=== PATIENT | female | born 1960 | race Caucasian/White ===

== ENCOUNTER → 2017-02-24 | Outpatient (CLI) | payer OTHER ==
--- NOTE | 2017-02-24 21:18 | WWHP ---
DATE OF SERVICE: 02/24/17 CHIEF COMPLAINT: The patient is here for her routine gynecological exam and mammogram. HISTORY OF PRESENT ILLNESS: This is a 57 -year-old G0, with an LMP of 2009. The patient is without gynecological complaints. Denies any postmenopausal bleeding. She weaned off Clonidine which she was taking for hot flashes. She states she has infrequent hot flashes and has been doing well without Clonidine. PAST MEDICAL HISTORY: Hypothyroidism, and depression. Medications: 1. Citalopram HBR 20 mg daily. 2. Synthroid 75 mcg daily. 3. Gabapentin one daily. ALLERGIES: No known drug allergies. PAST SURGICAL HISTORY: Colonoscopy in 2010. 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 SOCIAL HISTORY: She denies tobacco, alcohol and drug use. She is single and is not seeing anyone at this time and has not been sexually for years . 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 REVIEW OF SYSTEMS: She has gained about 9 pounds over the last year. She denies respiratory, cardiac or GI problems. PHYSICAL EXAM: Blood pressure 131/85. Height 5 feet 3 inches, weight 236 pounds. Temperature 97.7. Pulse 67. This is a well developed, well nourished white female who is alert and oriented times three in no acute distress. HEENT : is within normal limits. Neck is supple without mass or thyromegaly. Chest and lungs clear to auscultation. Heart is regular rate and rhythm. Breasts without mass or discharge. Axillary exam is negative for adenopathy. Back negative for CVA tenderness. Abdomen is soft and nontender without palpable masses. Pelvic exam, external genitalia appears normal with mild atrophy. Cervix and vagina reveals mild atrophy without lesions. There is no evidence of prolapse. Uterus is mid position, nongravid size and nontender. No palpable adnexal masses or tenderness. Rectovaginal exam is negative for mass or tenderness. Negative for occult blood. Extremities nontender. IMPRESSION: A 57 year old menopausal female with normal gynecological exam. PLAN: 1. Pap smear was deferred since she had a normal co-testing including negative PAP smear with negative HPV on 10/25/2014. 2. Self breast examination was discussed. 3. Mammogram will be done today. 4. Osteoporosis prevention was discussed. 5. She will return in one year. 6. We will plan on doing bone density testing next year. SAM
--- NOTE | 2017-02-26 09:53 | MM ---
Reason for exam: screening (asymptomatic). Last mammogram was performed 1 year and 2 months ago. History: Patient is postmenopausal and is nulliparous. Physical Findings: A clinical breast exam by your physician is recommended on an annual basis and results should be correlated with mammographic findings. MG Screening Mammo w CAD Bilateral CC and MLO view(s) were taken. Prior study comparison: December 26, 2015, bilateral MG screening mammo w CAD. There are scattered fibroglandular densities. No significant changes when compared with prior studies. ASSESSMENT: Negative, BI-RAD 1 RECOMMENDATION: Routine screening mammogram of both breasts in 1 year.
== END | disposition home or self-care (01) ==
LOC: WWCWWP 07:46
PROVIDERS: ATTEND Obstetrics & Gynecology
DX: Z12.31 Encounter for screening mammogram for malignant neoplasm of breast (principal)

== ENCOUNTER → 2018-04-21 | Outpatient (CLI) | payer OTHER ==
[2018-04-21 08:58] VITALS: BP 136/90; PULSE 74; TEMP 98.1; BMI 42.5
--- NOTE | 2018-04-21 09:45 | P.HPOB ---
History of Present Illness H&P Date: 04/21/18 Chief Complaint: The patient is here for her routine gynecologic exam and mammogram. This is a 58-year-old G0 with an LMP of 2009. The patient is without gynecologic complaints and denies any postmenopausal bleeding. She denies any significant hot flashes. She had a previous co-test Pap smear on 10/25/2014 that was negative and negative for high-risk HPV. Review of Systems The patient has gained 4 pounds over the last year. She denies respiratory, cardiac, or G.I. problems. 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 History of Any Multi-Drug Resistant Organisms: None Reported Past Surgical History: No Surgical Hx Reported Additional Past Surgical History / Comment(s): Colonoscopy 2010 Past Psychological History: Depression Smoking Status: Never smoker Past Alcohol Use History: None Reported Past Drug Use History: None Reported Additional History: The patient is single and has not been sexually active for several years. She lives with her elderly mother and is her caregiver. She works at the [employer]. - Past Family History Mother Family Medical History: Diabetes Mellitus Medications and Allergies Home Medications Medication Instructions Recorded Confirmed Type Levothyroxine Sodium [Synthroid] 75 mcg PO DAILY 05/18/15 05/18/15 History Citalopram Hydrobromide PO DAILY 04/21/18 History [Citalopram HBr] Allergies Allergy/AdvReac Type Severity Reaction Status Date / Time No Known Allergies Allergy Verified 04/21/18 08:54 Exam Vital Signs Temp Pulse BP 04/21/18 08:54 98.1 F 74 136/90 Intake and Output 04/20/18 04/21/18 04/21/18 22:59 06:59 14:59 Other: Weight 108.862 kg Height 5'3", BMI 42.5. This is a well-developed well-nourished heavyset white female who is alert and oriented times 3 in no acute distress. HEENT: Within normal limits. NECK: Supple without mass or thyromegaly. CHEST AND LUNGS: Clear to auscultation. HEART: Regular rate and rhythm. BREASTS: Are without mass or discharge. AXILLARY EXAM: Negative for adenopathy. BACK: Negative for CVA tenderness. ABDOMEN: Soft, mildly obese, nontender, without palpable masses. PELVIC EXAM: Normal external genitalia with minimal atrophy. Cervix and vagina appear normal with minimal atrophy. There is no unusual discharge. There is no evidence of prolapse. The uterus is midposition, nongravid size and nontender. There are no palpable adnexal masses or tenderness. RECTAL EXAM: rectovaginal exam is negative for mass or tenderness and is negative for occult blood. EXTREMITIES: Nontender. IMPRESSION: 1. 58-year-old menopausal female with normal gynecologic exam. 2. Previous negative negative Co-test pap smear 2014 PLAN: 1. Pap smear was deferred since she had a negative co-test Pap smear in 2014. We will plan on rescreening next year. 2. Self breast awareness was discussed with the patient. 3. Screening mammogram will be done today. 4. Osteoporosis prevention was discussed. Baseline bone density screening will be done today. 5. STD prevention was discussed. 6. She will return in one year.
--- NOTE | 2018-04-21 14:02 | BD ---
EXAMINATION TYPE: Axial Bone Density DATE OF EXAM: 04/21/2018 COMPARISON: NONE CLINICAL HISTORY: Height: 62 Weight: 237.0 FRAX RISK QUESTIONS: Alcohol (3 or more units per day): no Family History (Parent hip fracture): yes/ mother Glucocorticoids (More than 3mos): no (Ex: prednisone, prednisolone, methylprednisolone, dexamethasone, and hydrocortisone). History of Fracture in Adulthood: no Secondary Osteoporosis: 1. Type 1 Diabetes: no 2. Hyperthyroidism: no 3. Menopause before 45: no 4. Malnutrition: no 5. Chronic liver disease: no Rheumatoid Arthritis: no Current Tobacco Use: no RISK FACTORS HISTORY OF: Family History of Osteoporosis: no Active: yes Diet low in dairy products/other sources of calcium: yes Postmenopausal woman: age 49 Lost more than 2 inches in height since high school: no MEDICATIONS: celapram Thyroid Medications: synthroid How Lon years Additional History: EXAM MEASUREMENTS: Bone mineral densitometry was performed using the [employer] System. Bone mineral density as measured about the Lumbar spine is: ----- L1-L4(G/cm2): 1.069 T Score Values are as follows: ----- L2: -1.5 ----- L3: -0.9 ----- L4: -0.4 ----- L1-L4: -0.9 Bone mineral density : baseline Bone mineral density about the R hip (g/cm2): 0.793 Bone mineral density about the L hip (g/cm2): 0.850 T Score values are as follows: -----R Neck: -1.8 -----L Neck: -1.4 -----R Total: -1.1 -----L Total: -0.8 Bone mineral density : baseline IMPRESSION: Osteopenia proximal right femora NOTE: T-SCORE=SD OF THE YOUNG ADULT MEAN.
--- NOTE | 2018-04-23 12:37 | MM ---
Reason for exam: screening (asymptomatic). Last mammogram was performed 1 year and 2 months ago. History: Patient is postmenopausal and is nulliparous. Physical Findings: A clinical breast exam by your physician is recommended on an annual basis and results should be correlated with mammographic findings. MG 3D Screening Mammo W/Cad Bilateral CC and MLO view(s) were taken. Prior study comparison: February 24, 2017, bilateral MG screening mammo w CAD. December 26, 2015, bilateral MG screening mammo w CAD. The breast tissue is heterogeneously dense. This may lower the sensitivity of mammography. Finding: Thre is equal, spiculated architectural distortion in the outer quadrant, middle position of the left breast. New finding since February 24, 2017 and December 26, 2015. ASSESSMENT: Incomplete: need additional imaging evaluation, BI-RAD 0 RECOMMENDATION: Special view mammogram of the left breast. If lesion persists on supplemental views, image directed ultrasound is recommended. [facility] will attempt to contact patient to return for supplemental views and ultrasound if indicated.
--- NOTE | 2018-04-27 17:54 | P.PN ---
Progress Note - Text Progress Note Date: 04/27/18 OUTPATIENT FOLLOW-UP NOTE TEST(S)/RESULTS: test results from 04/21/2018 include bone density test showing osteopenia and mammogram requiring a left breast workup. METHOD OF NOTIFICATION: she was notified by phone. PATIENT COMMENTS: patient has an appointment for the left breast workup on 04/30. DIAGNOSIS: osteopenia and incomplete left breast imaging. DISCUSSION: we discussed the importance of adequate calcium, vitamin D and regular exercise. No medication for the osteopenia will be prescribed at this time. PLAN: Will plan a repeating the bone density test in 2 to 3 years. {Workup will be done on 04/30/2018.
== END | disposition home or self-care (01) ==
LOC: WWCWWP 08:27
PROVIDERS: ATTEND Obstetrics & Gynecology
DX: Z12.31 Encounter for screening mammogram for malignant neoplasm of breast (principal); M85.851 Other specified disorders of bone density and structure, right thigh; Z78.0 Asymptomatic menopausal state
CPT/HCPCS: 77063; 77067; 77080

== ENCOUNTER → 2018-04-30 | Outpatient (CLI) | payer OTHER ==
--- NOTE | 2018-04-30 14:29 | MM ---
Reason for exam: additional evaluation requested from abnormal screening. Last mammogram was performed less than 1 month ago. History: Patient is postmenopausal and is nulliparous. Physical Findings: Nurse Summary: 2cm nodule in the left breast at 11 o'clock (nurse kp). MG 3D Work Up W/Cad LT Spot compression CC, spot compression MLO, and LM view(s) were taken of the left breast. Prior study comparison: April 21, 2018, bilateral MG 3d screening mammo w/cad. February 24, 2017, bilateral MG screening mammo w CAD. The breast tissue is heterogeneously dense. This may lower the sensitivity of mammography. These results were verbally communicated with the patient and result sheet given to the patient on 04/30/18. ASSESSMENT: Probably benign, BI-RAD 3 RECOMMENDATION: Follow-up diagnostic mammogram of the left breast in 6 months.
== END | disposition home or self-care (01) ==
LOC: RADMAMWWP 10:45
PROVIDERS: ATTEND Obstetrics & Gynecology
DX: R92.8 Other abnormal and inconclusive findings on diagnostic imaging of breast (principal)
CPT/HCPCS: 77065; G0279; 77061

== ENCOUNTER → 2018-10-27 | Outpatient (CLI) | payer OTHER ==
--- NOTE | 2018-10-27 11:18 | MM ---
Reason for exam: follow-up at short interval from prior study. Last mammogram was performed 6 months ago. History: Patient is postmenopausal and is nulliparous. Physical Findings: Nurse did not find any significant physical abnormalities on exam. MG 3D Diag Mammo W/Cad LT CC and MLO view(s) were taken of the left breast. Prior study comparison: April 30, 2018, left breast MG 3d work up w/cad LT. April 21, 2018, bilateral MG 3d screening mammo w/cad. The breast tissue is heterogeneously dense. This may lower the sensitivity of mammography. These results were verbally communicated with the patient and result sheet given to the patient on 10/27/18. ASSESSMENT: Benign, BI-RAD 2 RECOMMENDATION: Return to routine screening mammogram schedule for both breasts. Back on schedule.
== END ==
LOC: RADMAMWWP 09:20
PROVIDERS: ATTEND Family Medicine
DX: R92.8 Other abnormal and inconclusive findings on diagnostic imaging of breast (principal)
CPT/HCPCS: 77065; G0279; 77061

== ENCOUNTER → 2019-05-04 | Outpatient (CLI) | payer OTHER ==
[2019-05-04 08:04] VITALS: BP 144/87; PULSE 63; RESP 16; TEMP 98.3; BMI 42.3
--- NOTE | 2019-05-04 08:42 | P.HPOB ---
History of Present Illness H&P Date: 05/04/19 Chief Complaint: The patient is here for her routine gynecologic exam and ma mmogram. This is a 59-year-old G0 with an LMP of 2009. The patient is without gynecologic complaints and denies any postmenopausal bleeding. Review of Systems The patient's weight has been stable over the last year. She denies respiratory, cardiac, or G.I. problems. Musculoskeletal: She has been having left shoulder problems and has undergone therapy for rotator cuff problems. Past Medical History Past Medical History: Thyroid Disorder Additional Past Medical History / Comment(s): 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 History of Any Multi-Drug Resistant Organisms: None Reported Past Surgical History: No Surgical Hx Reported Additional Past Surgical History / Comment(s): Colonoscopy 2010 Past Psychological History: Depression Smoking Status: Never smoker Past Alcohol Use History: None Reported Past Drug Use History: None Reported Additional History: The patient is single and is not seeing anybody at this time. She has not been sexually active for several years. 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 She works at the [employer]. - Past Family History Mother Family Medical History: Diabetes Mellitus Medications and Allergies Home Medications Medication Instructions Recorded Confirmed Type Levothyroxine Sodium [Synthroid] 75 mcg PO DAILY 05/18/15 05/04/19 History Citalopram Hydrobromide 20 mg PO DAILY 04/21/18 05/04/19 History [Citalopram HBr] Allergies Allergy/AdvReac Type Severity Reaction Status Date / Time No Known Allergies Allergy Verified 05/04/19 07:46 Exam Vital Signs Temp Pulse Resp BP Pulse Ox 05/04/19 07:50 98.3 F 63 16 144/87 97 Intake and Output 05/03/19 05/04/19 05/04/19 22:59 06:59 14:59 Other: Weight 108.409 kg Height 5 feet 3 inches, weight 239 pounds, BMI 42.3. This is a well-developed well-nourished heavyset white female who is alert and oriented times 3 in no acute distress. HEENT: Within normal limits. NECK: Supple without mass or thyromegaly. CHEST AND LUNGS: Clear to auscultation. HEART: Regular rate and rhythm. BREASTS: Are without mass or discharge. AXILLARY EXAM: Negative for adenopathy. BACK: Negative for CVA tenderness. ABDOMEN: Soft, nontender, without palpable masses. PELVIC EXAM: Normal external genitalia with mild atrophy. Cervix and vagina appear normal mild atrophy. There is no unusual discharge. There is no evidence of prolapse. The uterus is midposition, nongravid size and nontender. There are no palpable adnexal masses or tenderness. Bimanual examination is somewhat limited secondary to her size. RECTAL EXAM: Rectovaginal exam is negative for mass or tenderness and is negative for occult blood. EXTREMITIES: Nontender. IMPRESSION: 1. 59-year-old menopausal female with normal gynecologic exam. 2. Osteopenia. PLAN: 1. Pap smear was performed. 2. Self breast awareness was discussed with the patient. 3. Screening mammogram was done today. 4. Osteoporosis prevention was discussed. I have stressed the importance of adequate calcium, vitamin D and regular exercise. Recommended amounts of calcium and vitamin D were also discussed. Bone density testing will be due in 1-2 years. 5. She was advised to return in one year for her annual well woman exam.
--- NOTE | 2019-05-05 11:05 | MM ---
Reason for exam: screening (asymptomatic). Last mammogram was performed 6 months ago. History: Patient is postmenopausal and is nulliparous. Physical Findings: A clinical breast exam by your physician is recommended on an annual basis and results should be correlated with mammographic findings. MG 3D Screening Mammo W/Cad Bilateral CC and MLO view(s) were taken. Prior study comparison: October 27, 2018, left breast MG 3d diag mammo w/cad LT. April 30, 2018, left breast MG 3d work up w/cad LT. The breast tissue is heterogeneously dense. This may lower the sensitivity of mammography. Finding: There is a new typically benign circumscribed round mass in the anterior position of the right breast, fat density consistent with hamartomas. 19mm oval, circumscribed fat density lesion on CC and MLO . Interval oval circumscribed lesion outer anterior breast 2-2.5cm from the nipple. ASSESSMENT: Incomplete: need additional imaging evaluation, BI-RAD 0 RECOMMENDATION: Ultrasound of the right breast. [facility] will attempt to contact patient to return for ultrasound.
== END | disposition home or self-care (01) ==
LOC: WWCWWP 07:20
PROVIDERS: ATTEND Obstetrics & Gynecology
DX: Z12.31 Encounter for screening mammogram for malignant neoplasm of breast (principal)
CPT/HCPCS: 77063; 77067

== ENCOUNTER 2019-05-13 11:15 | Day surgery (SDC) | payer OTHER ==
[2019-05-11 09:30] VITALS: BMI 40.7
[~2019-05-13 11:15] MED LIST: LACTATED RINGERS 1,000 ML IV SCH; LIDOCAINE 1% 20 ML VIAL (10MG/ML) FOR IV START INTRADERMA PRN
[2019-05-13 11:32] VITALS: RESP 16; TEMP 97.6
[2019-05-13] MEDS ORDERED: PROPOFOL 10 MG/ML 20 ML VIAL IV ONE (11:52)
--- NOTE | 2019-05-13 11:57 | P.GSHP ---
History of Present Illness H&P Date: 05/13/19 Chief Complaint: Colon cancer screening Patient here today for colonoscopy. Last colonoscopy 10 years ago. That was normal. No bowel complaints. No family history of colon cancer. Past Medical History Past Medical History: Thyroid Disorder Additional Past Medical History / Comment(s): 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 History of Any Multi-Drug Resistant Organisms: None Reported Past Surgical History: No Surgical Hx Reported Additional Past Surgical History / Comment(s): Colonoscopy. Past Anesthesia/Blood Transfusion Reactions: No Reported Reaction Past Psychological History: Depression Smoking Status: Never smoker Past Alcohol Use History: None Reported Past Drug Use History: None Reported - Past Family History Mother Family Medical History: Diabetes Mellitus Medications and Allergies Home Medications Medication Instructions Recorded Confirmed Type Levothyroxine Sodium [Synthroid] 75 mcg PO DAILY 05/18/15 05/13/19 History Citalopram Hydrobromide 20 mg PO DAILY 04/21/18 05/13/19 History [Citalopram HBr] Allergies Allergy/AdvReac Type Severity Reaction Status Date / Time No Known Allergies Allergy Verified 05/13/19 11:42 Surgical - Exam Vital Signs Temp Pulse Resp BP Pulse Ox 97.6 F 97 16 129/75 97 05/13/19 11:31 05/13/19 11:31 05/13/19 11:31 05/13/19 11:31 05/13/19 11:31 Physical exam: General: Well-developed, well-nourished HEENT: Normocephalic, sclerae nonicteric Abdomen: Nontender, nondistended Extremities: No edema Neuro: Alert and oriented Assessment and Plan (1) Colon cancer screening Narrative/Plan: Will proceed with colonoscopy at this time. Current Visit: Yes Status: Acute Code(s): Z12.11 - ENCOUNTER FOR SCREENING FOR MALIGNANT NEOPLASM OF COLON SNOMED Code(s): 320650858
--- NOTE | 2019-05-13 12:11 | P.PCN ---
Date of Procedure: 05/13/19 Procedure(s) Performed: PREOPERATIVE DIAGNOSIS: Colon cancer screening POSTOPERATIVE DIAGNOSIS: Normal exam PROCEDURE: Colonoscopy ANESTHESIA: MAC SURGEON: Zheng Mesa M.D. SPECIMENS: None ENDOSCOPIC PROCEDURE: The patient was placed on the endoscopy table in the left decubitus position. The Olympus colonoscope was inserted into the anus and passed under direct visualization to the base of the cecum. The appendiceal orifice was visualized. From that point the scope was slowly withdrawn inspecti ng all surfaces carefully. There were no neoplastic inflammatory or polypoid lesions throughout the cecum, ascending, transverse, descending, sigmoid and rectum. There was no visible diverticulosis noted. Digital rectal examination was normal. The patient was taken to the recovery room in stable condition per anesthesia guidelines. RECOMMENDATIONS: Increase fiber. Follow-up colonoscopy 10 years.
[2019-05-13 12:53] VITALS: BP 127/86; PULSE 63
== END 2019-05-13 13:10 | disposition home or self-care (01) ==
LOC: ORWHC2ENDO 11:15
PROVIDERS: ATTEND Surgery
DX: Z12.11 Encounter for screening for malignant neoplasm of colon (principal); E03.9 Hypothyroidism, unspecified; Z83.3 Family history of diabetes mellitus; Z79.890 Hormone replacement therapy; Z79.899 Other long term (current) drug therapy; F32.9 Major depressive disorder, single episode, unspecified
CPT/HCPCS: J2704; G0121; 45378

== ENCOUNTER → 2019-05-20 | Outpatient (CLI) | payer OTHER ==
--- NOTE | 2019-05-20 10:09 | USB ---
Reason for exam: additional evaluation requested from abnormal screening. History: Patient is postmenopausal and is nulliparous. Physical Findings: Nurse Summary: palpable, 1cm, 10 o'clock (nurse kp). US Breast Workup Limited RT Right limited breast ultrasound including focal area of concern, retroareolar and axilla demonstrates a 1.6 x 1.2 x 2.1cm mixed lesion at 9 o'clock. These results were verbally communicated with the patient and result sheet given to the patient on 05/20/19. ASSESSMENT: Suspicious, BI-RAD 4 RECOMMENDATION: Ultrasound core biopsy of the right breast. (FNA +/- Core) Called Dr. Penny's office with mammographic findings and has scheduled an appointment for the patient for 06/16/19 at 3:[address] Bonilla. Biopsy scheduled for 06/17/19 at 11:30. PRELIMINARY REPORT CALLED AND FAXED TO DR. BONILLA ON 05/20/19.
== END ==
LOC: RADUSWWP 07:00
PROVIDERS: ATTEND Obstetrics & Gynecology
DX: R92.8 Other abnormal and inconclusive findings on diagnostic imaging of breast (principal)

== ENCOUNTER → 2019-06-16 | Outpatient (CLI) | payer OTHER ==
[2019-06-16 14:34] VITALS: BP 134/88; PULSE 70; RESP 18; TEMP 98.7; BMI 40.7
--- NOTE | 2019-06-16 15:10 | P.GSHP ---
History of Present Illness H&P Date: 06/16/19 Chief Complaint: abnormal ultrasound of the left breast Esme is a 59 -year-old white female seen in consultation for DR. Fajardo who on a routine mammogram was noted to have in the right breast fatty density consistent with a hamartoma. This was on [id number]. Ultrasound was recommended. An ultrasound was performed which revealed a 1.6 x 1.2 x 2.1 cm mixed lesion at 9:00. And it was recommended that she undergo an ultrasound core biopsy versus an FNA of the area. The nurse noted a 1 cm palpable lesion at 10:00. The patient does not note any pain or discrete masses in her breasts. She states they are lumpy as she gets older. She denies any nipple discharge or skin changes. No recent infection or trauma to the breast. She has never had a breast biopsy. The patient fell about a year ago and bruised her lower breast, but she did not note any lumps in her breast. The patient has pain in the 9 oclock position of the right breast. This does not spread any place. She is uncertain of the duration of the pain. The pain is only there when she touches it. She drinks tea occasionally. She does not smoke and is not exposed to second hand smoke. She eats dark chocolate about twice a week. Family History: no cancer Hormonal History; menarche: 13 Go menopause: 49 BCP: 30 years hormones: none Surgical history: Negative Medical history: Negative Social history: Smoke: Negative Alcohol: Negative Drugs: Negative - Constitutional Constitutional: Denies chills, Denies fever - EENT Eyes: denies blurred vision, denies pain Ears: deny: decreased hearing, tinnitus Ears, nose, mouth and throat: Denies headache, Denies sore throat - Breasts Breasts: bilateral: as per HPI - Cardiovascular Cardiovascular: Denies chest pain, Denies shortness of breath - Respiratory Respiratory: Denies cough, Denies 7 - Gastrointestinal Gastrointestinal: Denies abdominal pain, Denies diarrhea, Denies nausea, Denies vomiting - Genitourinary (Female) Genitourinary: Denies dysuria, Denies hematuria - Menstruation Menstruation: Reports postmenopausal - Musculoskeletal Comment: arthritis distal fingers both hand - Integumentary Integumentary: Denies pruritus, Denies rash - Neurological Neurological: Denies numbness, Denies weakness - Psychiatric Psychiatric: Denies anxiety, Denies depression - Endocrine Endocrine: Denies fatigue, Denies weight change - Hematologic/Lymphatic Comment: none - Allergic/Immunologic Allergic/Immunologic: Reports as per HPI Past Medical History Past Medical History: Thyroid Disorder Additional Past Medical History / Comment(s): 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 History of Any Multi-Drug Resistant Organisms: None Reported Past Surgical History: No Surgical Hx Reported Additional Past Surgical History / Comment(s): Colonoscopy 2010 Past Anesthesia/Blood Transfusion Reactions: No Reported Reaction Past Psychological History: Depression Smoking Status: Never smoker Past Alcohol Use History: None Reported Past Drug Use History: None Reported - Past Family History Mother Family Medical History: Diabetes Mellitus Medications and Allergies Home Medications Medication Instructions Recorded Confirmed Type Levothyroxine Sodium [Synthroid] 75 mcg PO DAILY 05/18/15 06/16/19 History Citalopram Hydrobromide 20 mg PO DAILY 04/21/18 06/16/19 History [Citalopram HBr] Allergies Allergy/AdvReac Type Severity Reaction Status Date / Time No Known Allergies Allergy Verified 06/16/19 14:28 Surgical - Exam Vital Signs Temp Pulse Resp BP Pulse Ox 98.7 F 70 18 134/88 97 06/16/19 14:29 06/16/19 14:29 06/16/19 14:29 06/16/19 14:29 06/16/19 14:29 BMI 40.7 - General obese - Eyes normal ocular movement - ENT normal pinna, no hearing loss, no congestion - Neck no masses, trachea midline, no lymphadectomy - Respiratory normal expansion, normal respiratory effort, clear to percussion, clear to auscultation - Cardiovascular Heart Sounds: normal: S1, S2 - Abdomen Abdomen: soft, non tender, no guarding, no rigid, no rebound - Integumentary normal turgor - Neurologic normal coordination, no disoriented, no combative - Musculoskeletal normal gait, normal posture - Psychiatric oriented to time, oriented to person, oriented to place, speech is normal, memory intact breast exam: right breast: multi-positional exam increased nodularity 9 o'clock position slightly tender to palpation no other dominant masses or nodules of concern Right axilla: No adenopathy of concern Left breast: Multi-positional exam no dominant masses or nodules of concern Left axilla: No adenopathy of concern Results Mammogram results reviewed, ultrasound results reviewed Assessment and Plan Assessment: Impression: 1. Abnormal mammogram and ultrasound right breast 2. Lump right breast 3. Fibrocystic breast changes right breast 4. Mastodynia right breast 5. Family history negative for cancer 6. BMI 40.7 Plan: 1. Is on core biopsy lesion noted in right breast 2. Follow-up after ultrasound core biopsy 3. discussed fibrocystic breast changes and pain may be related to theophylline intake patient will modify this We have discussed the fibrocystic breast changes again may be related to theophylline. We've also discussed that adipose tissue forms estrogen and this can exacerbate fibrocystic breast pain. The patient is aware of this she is on a weight reduction plan at the present time. She is being scheduled for ultrasound-guided core biopsy of the right breast. Risk and benefits are discussed. The patient understands and wishes to proceed. CC: Scotty about 25 minutes spent
== END ==
LOC: WWCWWP 13:27
PROVIDERS: ATTEND Surgery
DX: Z53.9 Procedure and treatment not carried out, unspecified reason (principal)

== ENCOUNTER → 2019-06-17 | Day surgery (SDC) | payer OTHER ==
[2019-06-17 10:45] VITALS: RESP 18; TEMP 98.5; BMI 42.0
[2019-06-17 12:21] VITALS: BP 126/85; PULSE 59
--- NOTE | 2019-06-17 12:46 | USB ---
EXAMINATION TYPE: US breast aspiration single RT DATE OF EXAM: 06/17/2019 COMPARISON: NONE CLINICAL HISTORY: Complex cyst right breast 9:00 position TECHNIQUE: Ultrasound guided cyst aspiration. FINDINGS: The procedure of ultrasound guided cyst aspiration was explained to the patient. Benefits, alternatives, and risks were discussed. An informed consent was then obtained. The standard sterile technique was utilized. Local anesthesia was obtained with 1% lidocaine. An 18-gauge needle was introduced into the lesion in question and approximately 0.5 cc of white thick aspirate was obtained and sent to cytology for further evaluation. Microclip marker was deployed. The patient tolerated the The patient tolerated the procedure well without any immediate complication. The patient was kept in the radiology department for short stay after the procedure and then discharged home in stable condition Post biopsy mammogram shows the clip to appear in satisfactory position relative to the targeted area of concern on the preprocedure images. IMPRESSION: SUCCESSFUL, UNCOMPLICATED ULTRASOUND GUIDED CYST ASPIRATION RIGHT 9:00 POSITION WITH CYTOLOGY RESULTS PENDING. Pathology Results: Benign RIGHT BREAST, 9:00, ASPIRATE: Minimally cellular specimen consisting of very rare bland ductal epithelial cells and macrophages. Essentially non-diagnostic. Recommendation Follow up ultrasound of the right breast in 6 months. SAM
--- NOTE | 2019-06-20 09:19 | MM ---
Reason for exam: additional evaluation requested from abnormal screening. Last mammogram was performed 1 month ago. History: Patient is postmenopausal and is nulliparous. MG Diagnostic Mammo RT Wo CAD CC and LM view(s) were taken of the right breast. Prior study comparison: May 04, 2019, bilateral MG 3d screening mammo w/cad. October 27, 2018, left breast MG 3d diag mammo w/cad LT. ASSESSMENT: Post procedure mammogram for marker placement RECOMMENDATION: Ultrasound of the right breast in 6 months. PENDING PATHOLOGY RESULTS.
== END ==
LOC: RADUSWWP 10:24
PROVIDERS: ATTEND Surgery
DX: N60.01 Solitary cyst of right breast (principal); R92.8 Other abnormal and inconclusive findings on diagnostic imaging of breast; Z78.0 Asymptomatic menopausal state
CPT/HCPCS: 88173; 77065; 76942; 19000; A4648; J2001

== ENCOUNTER → 2019-07-07 | Outpatient (CLI) | payer OTHER ==
[2019-07-07 17:02] VITALS: BP 144/88; PULSE 73; RESP 18; TEMP 98.3
--- NOTE | 2019-07-07 17:28 | P.PN ---
Subjective Progress Note Date: 07/07/19 Principal diagnosis: fibrocystic breast changes Esme is a 59-year-old white female status post ultrasound-guided cyst aspiration of the right breast at 9:00. Aspirate revealed minimally cellular specimen consisting of very rare bland ductal epithelial cells and macrophages. The patient has no complaints following the procedure. Objective - Vital Signs Vital signs: Vital Signs Temp 98.3 F 07/07/19 16:52 Pulse 73 07/07/19 16:52 Resp 18 07/07/19 16:52 BP 144/88 07/07/19 16:52 Pulse Ox 98 07/07/19 16:52 Intake & Output 07/06/19 07/07/19 07/07/19 18:59 06:59 18:59 Weight 106.594 kg - Exam BMI 41.6 - Constitutional General appearance: Present: obese - Integumentary Integumentary Comment(s): left breast at the aspiration site mild ecchymosis No evidence of hematoma Assessment and Plan Assessment: impression: 1. Status post aspiration of lesion right breast This was benign fibrocystic changes Plan: Follow up ultrasound of the right breast in 6 months with physician exam at that time CC: Dr. Penny, Dr. Morejon Time with Patient: Less than 30
== END | disposition home or self-care (01) ==
LOC: WWCWWP 16:04
PROVIDERS: ATTEND Surgery
DX: Z53.9 Procedure and treatment not carried out, unspecified reason (principal)

== ENCOUNTER → 2019-12-20 | Outpatient (CLI) | payer OTHER ==
--- NOTE | 2019-12-20 09:02 | USB ---
Reason for exam: clinical finding. History: Patient is postmenopausal and is nulliparous. Benign US breast aspiration single RT of the right breast, June 17, 2019. Physical Findings: Nurse Summary: all soft, nodular, movable (nurse ts). US Breast RT Technologist: Anna Marie Manzanares Right complete breast ultrasound includes all four quadrants, the retroareolar region and axilla. Finding demonstrates a 1.1 x 1.1 x 0.6cm cystic cluster at 12 o'clock and a 0.4 x 0.4 x 0.5cm cystic lesion at 9 o'clock. These results were verbally communicated with the patient and result sheet given to the patient on 12/20/19. ASSESSMENT: Benign, BI-RAD 2 RECOMMENDATION: Return to routine screening mammogram schedule for both breasts. Back on schedule for April 2020.
== END | disposition home or self-care (01) ==
LOC: RADUSWWP 07:58
PROVIDERS: ATTEND Surgery
DX: R92.8 Other abnormal and inconclusive findings on diagnostic imaging of breast (principal)

== ENCOUNTER → 2019-12-22 | Outpatient (CLI) | payer OTHER ==
[2019-12-22 08:45] VITALS: BP 120/78; PULSE 75; RESP 18; TEMP 97.8
--- NOTE | 2019-12-22 09:26 | P.PN ---
Subjective Progress Note Date: 12/22/19 Principal diagnosis: fibrocystic breast/follow up ultrasound Esme is a 59 -year-old white female who was seen in consultation for DR. Fajardo on 06-16-19. On a routine mammogram of 05-04-19 she noted to have in the right breast fatty density consistent with a hamartoma. Ultrasound was recommended, and preformed on 05-20-19. It revealed a 1.6 x 1.2 x 2.1 cm mixed lesion at 9:00. And it was recommended that she undergo an ultrasound core biopsy versus an FNA of the area. She had ultrasound guided biopsy of the area on [id number]. This was a minimally cellular specimen consisting of the rare bland ductal epithelial cells and macrophages, essentially nondiagnostic The patient does not note any pain or discrete masses in her breasts. She states they are lumpy as she gets older. She denies any nipple discharge or skin changes. No recent infection or trauma to the breast. The patient fell in the past and bruised her lower right breast, but she did not note any lumps in her breast and has had complete resolution of any symptoms. She is not complaining of any pain in her breast. She drinks tea daily. She does not smoke and is not exposed to second hand smoke. She eats dark chocolate about twice a week. Repeat ultrasound was performed on December 192019. This revealed a 1.1 x 0.6 cm cystic cluster at 12:00 and a 0.4 x 0.5 cm cystic cluster at 9:00. This was felt to be benign BIRADS 2 routine screening in April was recommended. Family History: no cancer Hormonal History; menarche: 13 Go menopause: 49 BCP: 30 years hormones: none Surgical history: Negative Medical history: Negative Social history: Smoke: Negative Alcohol: Negative Drugs: Negative - Constitutional Constitutional: Denies chills, Denies fever - EENT Eyes: denies blurred vision, denies pain Ears: deny: decreased hearing, tinnitus Ears, nose, mouth and throat: Denies headache, Denies sore throat - Breasts Breasts: bilateral: as per HPI - Cardiovascular Cardiovascular: Denies chest pain, Denies shortness of breath - Respiratory Respiratory: Denies cough - Gastrointestinal Gastrointestinal: Denies abdominal pain, Denies diarrhea, Denies nausea, Denies vomiting - Genitourinary (Female) Genitourinary: Denies dysuria, Denies hematuria - Menstruation Menstruation: Reports postmenopausal - Musculoskeletal Comment: swelling in hands from typing, gets steroid shots on occasion - Integumentary Integumentary: Denies pruritus, Denies rash - Neurological Neurological: Denies numbness, Denies weakness - Psychiatric Psychiatric: Denies anxiety, Denies depression - Endocrine Endocrine: Denies fatigue, Denies weight change - Hematologic/Lymphatic Comment: none - Allergic/Immunologic Allergic/Immunologic: Reports as per HPI Past Medical History Past Medical History: Thyroid Disorder Additional Past Medical History / Comment(s): 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 History of Any Multi-Drug Resistant Organisms: None Reported Past Surgical History: No Surgical Hx Reported Additional Past Surgical History / Comment(s): Colonoscopy 2011 Past Anesthesia/Blood Transfusion Reactions: No Reported Reaction Past Psychological History: Depression Smoking Status: Never smoker Past Alcohol Use History: None Reported Past Drug Use History: None Reported - Past Family History Mother Family Medical History: Diabetes Mellitus Objective - Vital Signs Vital signs: Vital Signs Temp 97.8 F 12/22/19 08:42 Pulse 75 12/22/19 08:42 Resp 18 12/22/19 08:42 BP 120/78 12/22/19 08:42 Pulse Ox 95 12/22/19 08:42 Intake & Output 12/21/19 12/22/19 12/22/19 18:59 06:59 18:59 Weight 104.326 kg - Exam BMI 40.7 - Constitutional General appearance: Present: obese - EENT Eyes: Present: EOMI ENT: Present: hearing grossly normal - Neck Neck: Present: normal ROM - Respiratory Respiratory: bilateral: CTA - Cardiovascular Rhythm: regular Heart sounds: normal: S1, S2 - Gastrointestinal General gastrointestinal: Present: normal bowel sounds, soft - Integumentary Integumentary: Present: normal turgor - Musculoskeletal Musculoskeletal: Present: gait normal - Psychiatric Psychiatric: Present: A&O x's 3, appropriate affect, intact judgment & insight - Additional findings Additional findings: Breast exam: BRA 44D inspection: ptosis grade 3, no nipple inversion palpation: right breast: multipositional exam no dominate masses or nodules of concern right axilla: no adenopathy of concern left breast: multipositional exam no dominate masses or nodules of concern left axilla: no adenopathy of concern Assessment and Plan Assessment: Impression: 1. fibrocystic breast changes 2. ultrasound of right breast 12-20-19, benign BIRAD 2 Plan: 1. repeat mammogram in April 2020 2. Follow-up. After mammogram 3. Patient to call if she notes anything that she is concerned about in her breast CC: DR. Zohreh Morejon encounter 20 minutes,> 50% of time in planning and counselling Time with Patient: Less than 30
== END | disposition home or self-care (01) ==
LOC: WWCWWP 08:37
PROVIDERS: ATTEND Surgery
DX: Z53.9 Procedure and treatment not carried out, unspecified reason (principal)

== ENCOUNTER → 2020-04-25 | Outpatient (CLI) | payer OTHER ==
[2020-04-25 08:04] VITALS: BP 136/84; PULSE 66; RESP 18; TEMP 98.7
--- NOTE | 2020-04-25 08:59 | P.HPOB ---
History of Present Illness H&P Date: 04/25/20 Chief Complaint: The patient is here for her routine gynecologic exam. This is a 60-year-old G0 with an LMP of 2009. The patient is without gynecologic complaints. 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 She is had difficulty losing weight especially with the Covid pandemic shutdown. Review of Systems The patient has gained 3 pounds over the last year. She denies respiratory, cardiac, or G.I. problems. 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 History of Any Multi-Drug Resistant Organisms: None Reported Past Surgical History: No Surgical Hx Reported Additional Past Surgical History / Comment(s): Colonoscopy 2018, cryotherapy of the cervix 2003 Past Anesthesia/Blood Transfusion Reactions: No Reported Reaction Past Psychological History: Depression Smoking Status: Never smoker Past Alcohol Use History: None Reported Past Drug Use History: None Reported Additional History: The patient is single and is not seeing anybody at this time. She has not been sexually active for several years. 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 This has been stressful. - Past Family History Mother Family Medical History: Diabetes Mellitus Medications and Allergies Home Medications Medication Instructions Recorded Confirmed Type Levothyroxine Sodium [Synthroid] 75 mcg PO QAM 05/18/15 04/25/20 History Citalopram Hydrobromide 20 mg PO QAM 04/21/18 04/25/20 History [Citalopram HBr] Cholecalciferol [Vitamin D3 (25 1,000 unit PO DAILY 04/25/20 04/25/20 History Mcg = 1000 Iu)] Allergies Allergy/AdvReac Type Severity Reaction Status Date / Time No Known Allergies Allergy Verified 04/25/20 07:56 Exam Vital Signs Temp Pulse Resp BP Pulse Ox 04/25/20 07:58 98.7 F 66 18 136/84 93 L Intake and Output 04/24/20 04/25/20 04/25/20 22:59 06:59 14:59 Other: Weight 109.769 kg Height 5 feet 3 inches, weight 242 pounds, BMI 42.9. This is a well-developed well-nourished heavyset light female who is alert and oriented times 3 in no acute distress. HEENT: Within normal limits. NECK: Supple without mass or thyromegaly. CHEST AND LUNGS: Clear to auscultation. HEART: Regular rate and rhythm. BREASTS: Are without mass or discharge. AXILLARY EXAM: Negative for adenopathy. BACK: Negative for CVA tenderness. ABDOMEN: Soft, obese, nontender, without palpable masses. PELVIC EXAM: Normal external genitalia with mild atrophy. Cervix and vagina appear normal with mild atrophy. There is no unusual discharge. There is no evidence of prolapse. The uterus is midposition, nongravid size and nontender. There are no palpable adnexal masses or tenderness. Bimanual examination is somewhat limited secondary to her size. RECTAL EXAM: Rectovaginal exam is negative for mass or tenderness and is negative for occult blood. EXTREMITIES: Nontender. IMPRESSION: 1. 60-year-old menopausal female with normal gynecologic exam. 2. History of osteopenia. PLAN: 1. Pap smear was deferred since she had a normal one on 05/04/2019. 2. Self breast awareness was discussed with the patient. 3. Screening mammogram is scheduled for 05/25/2020. The order slip was given to the patient for this. 4. Osteoporosis prevention was discussed. I have stressed the importance of adequate calcium, vitamin D and regular exercise. Recommended amounts of calcium and vitamin D were also discussed. She has a bone density testing scheduled for later this month and the order slip was given to the patient for this. 5. Weight control was discussed with the patient. I have stressed the importance of good nutrition, regular meals, adequate fiber, and adequate activity. I have stressed the importance of making herself a priority when she is spending most of her time caring for her mother. 6. She was advised to return in one year for her annual well woman exam.
== END | disposition home or self-care (01) ==
LOC: WWCWWP 07:49
PROVIDERS: ATTEND Obstetrics & Gynecology
DX: Z53.9 Procedure and treatment not carried out, unspecified reason (principal)

== ENCOUNTER → 2020-05-23 | Outpatient (CLI) | payer OTHER ==
--- NOTE | 2020-05-23 14:25 | BD ---
EXAMINATION TYPE: Axial Bone Density DATE OF EXAM: 05/23/2020 COMPARISON: NONE CLINICAL HISTORY: Height: 62.5 Weight: 239.7 FRAX RISK QUESTIONS: Alcohol (3 or more units per day): no Family History (Parent hip fracture): yes Glucocorticoids (More than 3mos): no (Ex: prednisone, prednisolone, methylprednisolone, dexamethasone, and hydrocortisone). History of Fracture in Adulthood: no Secondary Osteoporosis: 1. Type 1 Diabetes: no 2. Hyperthyroidism: no 3. Menopause before 45: no 4. Malnutrition: no 5. Chronic liver disease: no Rheumatoid Arthritis: no Current Tobacco Use: no RISK FACTORS HISTORY OF: Family History of Osteoporosis: no Active: yes Diet low in dairy products/other sources of calcium: yes Postmenopausal woman: around age 50 Lost more than 2 inches in height since high school: no MEDICATIONS: Thyroid Medications: synthroid , anti-anxiety med How Lon years Additional History: EXAM MEASUREMENTS: Bone mineral densitometry was performed using the [employer] System. Bone mineral density as measured about the Lumbar spine is: ----- L1-L4(G/cm2): 1.076 T Score Values are as follows: ----- L2: -1.2 ----- L3: -0.9 ----- L4: -0.5 ----- L1-L4: -0.9 Bone mineral density has: increased 1.1 % since study of: 04.21.2018 Bone mineral density about the R hip (g/cm2): 0.776 Bone mineral density about the L hip (g/cm2): 0.772 T Score values are as follows: -----R Neck: -1.9 -----L Neck: -1.9 -----R Total: -1.1 -----L Total: -0.9 Bone mineral density has: 0.0 % since study of: 04.21.2018 IMPRESSION: Osteopenia (T Score between -2.5 and -1). There is slightly increased risk of fracture and the patient may be considered for treatment. Re-Screen 2-5 years. NOTE: T-SCORE=SD OF THE YOUNG ADULT MEAN.
== END | disposition home or self-care (01) ==
LOC: RADBDWWP 07:01
PROVIDERS: ATTEND Obstetrics & Gynecology
DX: M85.80 Other specified disorders of bone density and structure, unspecified site (principal); Z78.0 Asymptomatic menopausal state
CPT/HCPCS: 77080

== ENCOUNTER → 2020-05-25 | Outpatient (CLI) | payer OTHER ==
--- NOTE | 2020-05-29 08:13 | MM ---
Reason for exam: screening (asymptomatic). Last mammogram was performed 11 months ago. History: Patient is postmenopausal and is nulliparous. Benign US breast aspiration single RT of the right breast, June 17, 2019. Physical Findings: A clinical breast exam by your physician is recommended on an annual basis and results should be correlated with mammographic findings. MG 3D Screening Mammo W/Cad Bilateral CC and MLO view(s) were taken. Prior study comparison: June 17, 2019, right breast MG diagnostic mammo RT wo CAD. May 04, 2019, bilateral MG 3d screening mammo w/cad. The breast tissue is heterogeneously dense. This may lower the sensitivity of mammography. Finding: There is a typically benign circumscribed oval mass in the right breast. No significant changes in finding since June 17, 2019 and May 04, 2019. ASSESSMENT: Benign, BI-RAD 2 RECOMMENDATION: Routine screening mammogram of both breasts in 1 year.
== END | disposition home or self-care (01) ==
LOC: RADMAMWWP 07:02
PROVIDERS: ATTEND Obstetrics & Gynecology
DX: Z12.31 Encounter for screening mammogram for malignant neoplasm of breast (principal)
CPT/HCPCS: 77063; 77067

== ENCOUNTER → 2020-06-01 | Outpatient (CLI) | payer OTHER ==
[2020-06-01 11:08] VITALS: BP 148/86; RESP 18; TEMP 98.3
--- NOTE | 2020-06-01 11:16 | P.PN ---
Subjective Progress Note Date: 06/01/20 Principal diagnosis: fibrocystic breast changes Esme is a 59 -year-old white female who was seen in consultation for DR. Fajardo on 06-16-19. On a routine mammogram of 05-04-19 she noted to have in the right breast fatty density consistent with a hamartoma. Ultrasound was recommended, and preformed on 05-20-19. It revealed a 1.6 x 1.2 x 2.1 cm mixed lesion at 9:00. And it was recommended that she undergo an ultrasound core biopsy versus an FNA of the area. She had ultrasound guided biopsy of the area on [id number]. This was a minimally cellular specimen consisting of the rare bland ductal epithelial cells and macrophages, essentially nondiagnostic Repeat ultrasound was performed on December 192019. This revealed a 1.1 x 0.6 cm cystic cluster at 12:00 and a 0.4 x 0.5 cm cystic cluster at 9:00. This was felt to be benign BIRADS 2 routine screening in April was recommended. The patient does not note any pain or discrete masses in her breasts. She states they are lumpy as she gets older. She denies any nipple discharge or skin changes. No recent infection or trauma to the breast. She had a bilateral mammogram performed on . This revealed atypical benign circumscribed oval mass in the right breast no significant changes since April 2019. This was felt to be benign BIRADS 2 and routine screening of both breast in 1 year recommended. She is not complaining of any pain in her breast. She drinks tea daily. She does not smoke and is not exposed to second hand smoke. She eats dark chocolate about twice a week. Family History: no cancer Hormonal History; menarche: 13 Go menopause: 49 BCP: 30 years hormones: none Surgical history: Negative Medical history: Negative Social history: Smoke: Negative Alcohol: Negative Drugs: Negative - Constitutional Constitutional: Denies chills, Denies fever - EENT Eyes: denies blurred vision, denies pain Ears: deny: decreased hearing, tinnitus Ears, nose, mouth and throat: Denies headache, Denies sore throat - Breasts Breasts: bilateral: as per HPI - Cardiovascular Cardiovascular: Denies chest pain, Denies shortness of breath - Respiratory Respiratory: Denies cough - Gastrointestinal Gastrointestinal: Denies abdominal pain, Denies diarrhea, Denies nausea, Denies vomiting - Genitourinary (Female) Genitourinary: Denies dysuria, Denies hematuria - Menstruation Menstruation: Reports postmenopausal - Musculoskeletal Comment: swelling in hands from typing, gets steroid shots on occasion - Integumentary Integumentary: Denies pruritus, Denies rash - Neurological Neurological: Denies numbness, Denies weakness - Psychiatric Psychiatric: Denies anxiety, Denies depression - Endocrine Endocrine: Denies fatigue, Denies weight change - Hematologic/Lymphatic Comment: none - Allergic/Immunologic Allergic/Immunologic: Reports as per HPI Objective - Exam BMI 41.6 - Constitutional General appearance: Present: obese - EENT Eyes: Present: EOMI ENT: Present: hearing grossly normal - Neck Neck: Present: normal ROM - Respiratory Respiratory: bilateral: CTA - Cardiovascular Rhythm: regular Heart sounds: normal: S1, S2 - Gastrointestinal General gastrointestinal: Present: normal bowel sounds, soft - Integumentary Integumentary: Present: normal turgor - Musculoskeletal Musculoskeletal: Present: gait normal - Psychiatric Psychiatric: Present: A&O x's 3, appropriate affect - Additional findings Additional findings: Breast Exam: BRA 44D inspection: Bilateral grade 3 ptosis Palpation: right breast: Multiple positional exam fibrocystic changes, no dominant masses or nodules of concern Right axilla: No adenopathy of concern Left breast: Multiple positional exam fibrocystic changes no dominant masses or nodules of concern Left axilla: No adenopathy of concern Assessment and Plan Assessment: Impression: 1. Fibrocystic breast changes Plan: 1. Repeat bilateral mammogram in 1 year with physician exam at that time 2. The patient is concerned that she may be able to feel the clip that was deployed in her breast at the ultrasound core biopsy which showed of the size of the clip and discussed that we don't think that she can fill the clip that she may feel some scar tissue related to that we are not concerned about this area Cc: Dr. Penny encounter 15 minutes > 50% of time spent in planning and counselling
== END | disposition home or self-care (01) ==
LOC: WWCWWP 10:29
PROVIDERS: ATTEND Surgery
DX: Z53.9 Procedure and treatment not carried out, unspecified reason (principal)

== ENCOUNTER → 2021-05-08 | Outpatient (CLI) | payer OTHER ==
[2021-05-08 08:10] VITALS: BP 136/88; PULSE 79; RESP 14; TEMP 98.2
--- NOTE | 2021-05-08 08:55 | P.HPOB ---
History of Present Illness H&P Date: 05/08/21 Chief Complaint: The patient is here for her routine gynecologic exam. This is a 61-year-old G0 with an LMP of 2009. The patient is without gynecologic complaints and denies any postmenopausal bleeding. She continues tohave difficulty losing weight. She has had much stress from caring for her elderly mother as well as working a new job. Review of Systems The patient's weight has been stable over the last year. She denies respiratory, cardiac, or G.I. problems. Past Medical History Past Medical History: Thyroid Disorder Additional Past Medical History / Comment(s): 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 Osteopenia. 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 History of Any Multi-Drug Resistant Organisms: None Reported Past Surgical History: No Surgical Hx Reported Additional Past Surgical History / Comment(s): Colonoscopy 2019(next after 10yr), cryotherapy of the cervix 2003 Past Anesthesia/Blood Transfusion Reactions: No Reported Reaction Past Psychological History: Depression Smoking Status: Never smoker Past Alcohol Use History: None Reported Past Drug Use History: None Reported Additional History: The patient is single and is not seeing anybody this time. She has not been sexually active for several years. 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 - Past Family History Mother Family Medical History: Diabetes Mellitus Medications and Allergies Home Medications Medication Instructions Recorded Confirmed Type Levothyroxine Sodium [Synthroid] 75 mcg PO QAM 05/18/15 05/08/21 History Citalopram Hydrobromide 20 mg PO QAM 04/21/18 05/08/21 History [Citalopram HBr] Cholecalciferol [Vitamin D3 (25 1,000 unit PO DAILY 04/25/20 05/08/21 History Mcg = 1000 Iu)] Allergies Allergy/AdvReac Type Severity Reaction Status Date / Time No Known Allergies Allergy Verified 05/08/21 07:54 Exam Vital Signs Temp Pulse Resp BP Pulse Ox 05/08/21 07:56 98.2 F 79 14 136/88 96 Intake and Output 05/07/21 05/08/21 05/08/21 22:59 06:59 14:59 Other: Weight 109.769 kg Height 5 feet 3 inches, weight 242 pounds, BMI 42.9. This is a well-developed well-nourished heavyset white female who is alert and oriented times 3 in no acute distress. HEENT: Within normal limits. NECK: Supple without mass or thyromegaly. CHEST AND LUNGS: Clear to auscultation. HEART: Regular rate and rhythm. BREASTS: Are without mass or discharge. AXILLARY EXAM: Negative for adenopathy. BACK: Negative for CVA tenderness. ABDOMEN: Soft, nontender, without palpable masses. PELVIC EXAM: Normal external genitalia with mild atrophy. Cervix and vagina appear normal with mild atrophy. There is no unusual discharge. There is no evidence of prolapse. The uterus is midposition, nongravid size and nontender. There are no palpable adnexal masses or tenderness. Bimanual examination is somewhat limited secondary to her size. RECTAL EXAM: Rectovaginal exam is negative for mass or tenderness and is negative for occult blood. EXTREMITIES: Nontender. IMPRESSION: 1. 61-year-old menopausal female with normal gynecologic exam. 2. History of osteopenia. PLAN: 1. Pap smear cotest was performed. 2. Self breast awareness was discussed with the patient. We have also discussed symptoms associated with inflammatory breast cancer. 3. Screening mammogram is scheduled for 05/27/2021 and the order slip was given to the patient for this. 4. Osteoporosis prevention was discussed. I have stressed the importance of adequate calcium, vitamin D and regular exercise. Recommended amounts of calcium and vitamin D were also discussed. She will be due for her bone density test in 1-2 years. 5. She has completed her Covid vaccination series and also has received her flu shot recently. 6. She was advised to return in one year for her annual well woman exam.
== END ==
LOC: WWCWWP 07:43
PROVIDERS: ATTEND Obstetrics & Gynecology
DX: Z01.419 Encounter for gynecological examination (general) (routine) without abnormal findings (principal); E03.9 Hypothyroidism, unspecified; F32.9 Major depressive disorder, single episode, unspecified; Z79.899 Other long term (current) drug therapy; Z87.39 Personal history of other diseases of the musculoskeletal system and connective tissue

== ENCOUNTER → 2021-05-27 | Outpatient (CLI) | payer OTHER ==
--- NOTE | 2021-05-28 11:34 | MM ---
Reason for exam: screening (asymptomatic). Last mammogram was performed 1 year ago. History: Patient is postmenopausal and is nulliparous. Benign US breast aspiration single RT of the right breast, June 17, 2019. Physical Findings: A clinical breast exam by your physician is recommended on an annual basis and results should be correlated with mammographic findings. MG 3D Screening Mammo W/Cad Bilateral CC and MLO view(s) were taken. Prior study comparison: May 25, 2020, bilateral MG 3d screening mammo w/cad. June 17, 2019, right breast MG diagnostic mammo RT wo CAD. There are scattered fibroglandular densities. There are benign appearing round calcifications bilaterally. Previous mammotome biopsy in the right breast. There is no discrete abnormality. ASSESSMENT: Benign, BI-RAD 2 RECOMMENDATION: Routine screening mammogram of both breasts in 1 year.
== END | disposition home or self-care (01) ==
LOC: RADMAMWWP 07:12
PROVIDERS: ATTEND Surgery
DX: Z12.31 Encounter for screening mammogram for malignant neoplasm of breast (principal)
CPT/HCPCS: 77063; 77067

== ENCOUNTER → 2021-05-31 | Outpatient (CLI) | payer OTHER ==
[2021-05-31 09:39] VITALS: BP 124/84; PULSE 90; RESP 16; TEMP 98.5
--- NOTE | 2021-05-31 10:12 | P.PN ---
Subjective Progress Note Date: 05/31/21 Principal diagnosis: fibro-cystic breast changes fibrocystic breast changes Esme is a 61-year-old white female seen regarding fibrocystic breast disease. She had a bilateral mammogram performed on which was benign BIRADS 2. She is not complaining of any new lumps masses or nodules of concern in either breast. Importance is the fact that she underwent an ultrasound- guided biopsy of the right breast on [id number] this was benign. She drinks tea daily. She does not smoke and is not exposed to second hand smoke. She eats dark chocolate about twice a week. Family History: no cancer Hormonal History; menarche: 13 Go menopause: 49 BCP: 30 years hormones: none Surgical history: Negative Medical history: Negative Social history: Smoke: Negative Alcohol: Negative Drugs: Negative - Constitutional Constitutional: Denies chills, Denies fever - EENT Eyes: denies blurred vision, denies pain Ears: deny: decreased hearing, tinnitus Ears, nose, mouth and throat: Denies headache, Denies sore throat - Breasts Breasts: bilateral: as per HPI - Cardiovascular Cardiovascular: Denies chest pain, Denies shortness of breath - Respiratory Respiratory: Denies cough - Gastrointestinal Gastrointestinal: Denies abdominal pain, Denies diarrhea, Denies nausea, Denies vomiting - Genitourinary (Female) Genitourinary: Denies dysuria, Denies hematuria - Menstruation Menstruation: Reports postmenopausal - Musculoskeletal Comment: swelling in hands from typing, gets steroid shots on occasion - Integumentary Integumentary: Denies pruritus, Denies rash - Neurological Neurological: Denies numbness, Denies weakness - Psychiatric Psychiatric: Denies anxiety, Denies depression - Endocrine Endocrine: Denies fatigue, Denies weight change - Hematologic/Lymphatic Comment: none - Allergic/Immunologic Allergic/Immunologic: Reports as per HPI Objective - Vital Signs Vital signs: Vital Signs Temp 98.5 F 05/31/21 09:31 Pulse 90 05/31/21 09:31 Resp 16 05/31/21 09:31 BP 124/84 05/31/21 09:31 Pulse Ox Intake & Output 05/30/21 05/31/21 05/31/21 18:59 06:59 18:59 Weight 108.862 kg - Constitutional General appearance: Present: cooperative - EENT Eyes: Present: EOMI ENT: Present: hearing grossly normal - Neck Neck: Present: normal ROM - Respiratory Respiratory: bilateral: CTA - Cardiovascular Rhythm: regular Heart sounds: normal: S1, S2 - Integumentary Integumentary: Present: normal turgor - Musculoskeletal Musculoskeletal: Present: gait normal - Psychiatric Psychiatric: Present: A&O x's 3, appropriate affect, intact judgment & insight - Additional findings Additional findings: Breast Exam: BRA: 42D inspection: Bilateral grade 3 ptosis Palpation: Right breast: Multiple positional exam fibrocystic changes no dominant masses or nodules of concern Right axilla: No adenopathy of concern Left breast: Multiple positional exam fibrocystic changes no dominant masses or nodules of concern Left axilla: No adenopathy of concern Assessment and Plan Assessment: Impression: Fibrocystic breast changes Plan: Bilateral mammogram 1 year with physician exam at that time CC: Dr. Zohreh Morejon
== END ==
LOC: WWCWWP 09:19
PROVIDERS: ATTEND Surgery
DX: N60.11 Diffuse cystic mastopathy of right breast (principal)

== ENCOUNTER → 2022-05-13 | Outpatient (CLI) | payer OTHER ==
[2022-05-13 08:07] VITALS: BP 132/87; PULSE 77; RESP 17; TEMP 98.9
--- NOTE | 2022-05-13 08:42 | P.HPOB ---
History of Present Illness H&P Date: 05/13/22 Chief Complaint: The patient is here for her routine gynecologic exam. This is a 62-year-old G0 with an LMP of 2009. The patient is without gynecologic complaints. Review of Systems The patient has lost 6 pounds over the last year. She attributes to weight loss to stress. She has stress with work and caring for her elderly parents. She denies respiratory, cardiac, or G.I. problems. Past Medical History Past Medical History: Thyroid Disorder Additional Past Medical History / Comment(s): 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 Chronic back problems with pain. Osteopenia. 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 History of Any Multi-Drug Resistant Organisms: None Reported Past Surgical History: No Surgical Hx Reported Additional Past Surgical History / Comment(s): Colonoscopy 2019(next after 10yr), cryotherapy of the cervix 2003 Past Anesthesia/Blood Transfusion Reactions: No Reported Reaction Past Psychological History: Depression Smoking Status: Never smoker Past Alcohol Use History: None Reported Past Drug Use History: None Reported Additional History: The patient is single and is not sexually active. She is the primary caregiver for her elderly mother and lives with her now. Her sister has moved to [place] to be closer to her elderly parents. 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 - Past Family History Mother Family Medical History: Diabetes Mellitus Medications and Allergies Home Medications Medication Instructions Recorded Confirmed Type Levothyroxine Sodium [Synthroid] 75 mcg PO QAM 05/18/15 05/13/22 History Citalopram Hydrobromide 20 mg PO QAM 04/21/18 05/13/22 History [Citalopram HBr] Cholecalciferol [Vitamin D3 (25 1,000 unit PO DAILY 04/25/20 05/13/22 History Mcg = 1000 Iu)] Allergies Allergy/AdvReac Type Severity Reaction Status Date / Time No Known Allergies Allergy Verified 05/13/22 08:01 Exam Vital Signs Temp Pulse Resp BP Pulse Ox 05/13/22 08:04 98.9 F 77 17 132/87 97 Intake and Output 05/12/22 05/13/22 05/13/22 22:59 06:59 14:59 Other: Weight 107.048 kg Height 5 feet 3 inches, weight 236 pounds, BMI 41.8. This is a well-developed well-nourished white female who is alert and oriented times 3 in no acute distress. HEENT: Within normal limits. NECK: Supple without mass or thyromegaly. CHEST AND LUNGS: Clear to auscultation. HEART: Regular rate and rhythm. BREASTS: Are without mass or discharge. AXILLARY EXAM: Negative for adenopathy. BACK: Negative for CVA tenderness. ABDOMEN: Soft, nontender, without palpable masses. PELVIC EXAM: Normal external genitalia with mild atrophy. Cervix and vagina appear normal with mild atrophy. There is no unusual discharge. There is no evidence of prolapse. The uterus is midposition, nongravid size and nontender. There are no palpable adnexal masses or tenderness. RECTAL EXAM: Rectovaginal exam is negative for mass or tenderness and is negative for occult blood. EXTREMITIES: Nontender. IMPRESSION: 1. 62-year-old menopausal female with normal gynecologic exam. 2. History of osteopenia. PLAN: 1. Pap smear was deferred since she had a negative Pap smear, test on 05/08/2021. 2. Self breast awareness was discussed with the patient. We have also discussed symptoms associated with inflammatory breast cancer. 3. Screening mammogram is scheduled for 05/29/2022. The order slip was given to the patient for this. 4. Osteoporosis prevention was discussed. I have stressed the importance of adequate calcium, vitamin D and regular exercise. Recommended amounts of calcium and vitamin D were also discussed. Her last bone density test was on 05/23/2020. I have recommended that we do another bone density test in the next year. She would like to do this next year at her well woman examination. 5. She has completed her Covid vaccination series and has received 2 boosters. 6. She was advised to return in one year for her annual well woman exam.
== END ==
LOC: WWCWWP 07:50
PROVIDERS: ATTEND Obstetrics & Gynecology
DX: Z01.419 Encounter for gynecological examination (general) (routine) without abnormal findings (principal); Z87.39 Personal history of other diseases of the musculoskeletal system and connective tissue

== ENCOUNTER → 2022-06-05 | Outpatient (CLI) | payer OTHER ==
[2022-06-05 10:09] VITALS: BP 118/83; PULSE 74; RESP 16; TEMP 97.5
--- NOTE | 2022-06-05 10:21 | P.PN ---
Subjective Progress Note Date: 06/05/22 Principal diagnosis: fibrocystic breast changes fibro-cystic breast changes dutch Victoria is a 61-year-old white female seen regarding fibrocystic breast disease. She had a bilateral mammogram performed on which was benign BIRADS 2. She is not complaining of any new lumps masses or nodules of concern in either breast. Importance is the fact that she underwent an ultrasound- guided biopsy of the right breast on [id number] this was benign. Underwent a bilateral mammogram on . This revealed scattered fibroglandular densities. It was benign BIRADS 2. The patient is not complaining of any lumps masses or nodules of concern in her breast. She is not complaining of any nipple discharge or skin changes. She has not had any recent surgery or trauma to her breast. No recent breast infections. She drinks tea daily. She does not smoke and is not exposed to second hand smoke. She eats dark chocolate about twice a week. Family History: no cancer Hormonal History; menarche: 13 Go menopause: 49 BCP: 30 years hormones: none Surgical history: Negative Medical history: Negative Social history: Smoke: Negative Alcohol: Negative Drugs: Negative - Constitutional Constitutional: Denies chills, Denies fever - EENT Eyes: denies blurred vision, denies pain Ears: deny: decreased hearing, tinnitus Ears, nose, mouth and throat: Denies headache, Denies sore throat - Breasts Breasts: bilateral: as per HPI - Cardiovascular Cardiovascular: Denies chest pain, Denies shortness of breath - Respiratory Respiratory: Denies cough - Gastrointestinal Gastrointestinal: Denies abdominal pain, Denies diarrhea, Denies nausea, Denies vomiting - Genitourinary (Female) Genitourinary: Denies dysuria, Denies hematuria - Menstruation Menstruation: Reports postmenopausal - Musculoskeletal Comment: swelling in hands from typing, gets steroid shots on occasion - Integumentary Integumentary: Denies pruritus, Denies rash - Neurological Neurological: Denies numbness, Denies weakness - Psychiatric Psychiatric: Denies anxiety, Denies depression - Endocrine Endocrine: Denies fatigue, Denies weight change - Hematologic/Lymphatic Comment: none - Allergic/Immunologic Allergic/Immunologic: Reports as per HPI Objective - Vital Signs Vital signs: Vital Signs Temp 97.5 F L 06/05/22 10:06 Pulse 74 06/05/22 10:06 Resp 16 06/05/22 10:06 BP 118/83 06/05/22 10:06 Pulse Ox 97 06/05/22 10:06 FiO2 Intake & Output 06/04/22 06/05/22 06/05/22 18:59 06:59 18:59 Weight 104.326 kg - Exam BMI: 40.7 - Constitutional General appearance: Present: cooperative - EENT Eyes: Present: EOMI ENT: Present: hearing grossly normal - Neck Neck: Present: normal ROM - Respiratory Respiratory: bilateral: CTA - Cardiovascular Rhythm: regular Heart sounds: normal: S1, S2 - Gastrointestinal General gastrointestinal: Present: soft - Integumentary Integumentary: Present: normal turgor - Musculoskeletal Musculoskeletal: Present: gait normal - Psychiatric Psychiatric: Present: A&O x's 3, appropriate affect, intact judgment & insight - Additional findings Additional findings: Breast Exam: BRA: 42D Inspection: Right breast larger than left breast, bilateral grade 2/3 ptosis Palpation: Right breast: Multi-positional exam fibrocystic changes no dominant masses or nodules of concern Right axilla: No adenopathy of concern Left breast: Multi-positional exam fibrocystic changes no dominant masses or nodules of concern Left axilla: No adenopathy of concern Assessment and Plan Assessment: Impression: Fibrocystic breast changes Plan: Bilateral mammogram 1 year with physician exam at that time Cc: Dr. Morejon
== END | disposition home or self-care (01) ==
LOC: WWCWWP 09:21
PROVIDERS: ATTEND Surgery
DX: Z53.9 Procedure and treatment not carried out, unspecified reason (principal)

== ENCOUNTER 2023-04-15 10:03 | Day surgery (SDC) | payer MEDICARE, OTHER ==
[2023-04-10 15:32] VITALS: BMI 42.5
--- NOTE | 2023-04-13 14:57 | P.HPOR ---
History of Present Illness H&P Date: 04/13/23 Subjective: This is a 63 year old female that presents today for a post-operative visit after undergoing right open in situ cubital tunnel release on 02/11/23. She has noticed improvement in the strength and numbness in the hand. Her pain has been controlled and her wound is healing uneventfully. She wishes to schedule a left cubital tunnel release. Physical Examination: RUE: AIN/PIN/Radial/Ulnar/Median motor intact. Radial/Ulnar/Median SILT. 2+/4 Radial/Ulnar pulses palpated. Incision well approximated. Elbow ROM 0-130. LUE: AIN/PIN/Radial/Ulnar/Median motor intact. Radial/Ulnar/Median SILT. 2+/4 Radial/Ulnar pulses palpated. Elbow ROM 0-130. Positive Tinels at cubital tunnel. Negative Durkans compression. Impression: 1.) S/P Right cubital tunnel release. 2.) Left cubital tunnel syndrome. Plan: Diagnosis and treatment options were discussed with the patient. She is doing well and healing quickly from her right sided procedure and wishes to undergo left open cubital tunnel release. She has failed conservative treatment for her left cubital tunnel syndrome like to proceed with a left open cubital tunnel release. Risks and benefits of surgery including bleeding, infection, damage to surrounding tissue, need for further surgery, residual numbness were discussed and the patient wished to go forward with surgery. The patient was agreeable with this plan. CC: Zohreh Shirley MD -Charlie Kapoor DO Orthopedic Hand/Upper Extremity Surgeon Past Medical History Past Medical History: Hyperlipidemia, Hypertension, Thyroid Disorder Additional Past Medical History / Comment(s): Chronic back pain, Osteopenia History of Any Multi-Drug Resistant Organisms: None Reported Past Surgical History: No Surgical Hx Reported, Breast Surgery Additional Past Surgical History / Comment(s): cryotherapy of the cervix 2003, rt breast cyst removed, right elbow surgery Past Anesthesia/Blood Transfusion Reactions: No Reported Reaction Past Psychological History: Depression, Panic Disorder Smoking Status: Never smoker Past Alcohol Use History: None Reported Past Drug Use History: None Reported - Past Family History Mother Family Medical History: Diabetes Mellitus Medications and Allergies Home Medications Medication Instructions Recorded Confirmed Type Levothyroxine Sodium [Synthroid] 88 mcg PO QAM 05/18/15 04/10/23 History Citalopram Hydrobromide 20 mg PO QAM 04/21/18 04/10/23 History [Citalopram HBr] Cholecalciferol [Vitamin D3 (25 1,000 unit PO DAILY 04/25/20 04/10/23 History Mcg = 1000 Iu)] Atorvastatin [Lipitor] 10 mg PO DAILY 02/10/23 04/10/23 History DULoxetine HCL [Cymbalta] 60 mg PO DAILY 02/10/23 04/10/23 History Losartan/Hydrochlorothiazide 1 tab PO DAILY 02/10/23 04/10/23 History [Losartan-Hctz 50-12.5 mg Tab] Acetaminophen-Codeine 300-30mg 1 - 2 tab PO TID PRN 04/10/23 04/10/23 History [Tylenol w/codeine #3] Allergies Allergy/AdvReac Type Severity Reaction Status Date / Time No Known Allergies Allergy Verified 04/10/23 13:40 Physical Examination Osteopathic Statement: *. No significant issues noted on an osteopathic structural exam other than those noted in the History and Physical/Consult.
[~2023-04-15 10:03] MED LIST changes: +DEXAMETHASONE SOD PHOSPHATE 4 MG/ML 1 ML VIAL IV ONE; +HYDROmorphone 0.5 MG/0.5 ML SYRINGE IVP PRN; +LIDOCAINE 1% (10MG/ML) FOR IV START INTRADERMA PRN; -LIDOCAINE 1% 20 ML VIAL (10MG/ML) FOR IV START INTRADERMA PRN; +ONDANSETRON 4 MG/2 ML VIAL IVP ONE; +Pre Op ABX Message 1 EACH MISC MISCELLANE ONE; +droPERidol 5 MG/2 ML VIAL IVP ONE
[2023-04-15] MEDS ORDERED: fentaNYL (PF) 50 MCG/ML 2 ML AMP ONE (10:45)
[2023-04-15] MEDS ORDERED: MIDAZOLAM 2 MG/2 ML VIAL ONE (10:45)
[2023-04-15] MEDS ORDERED: LIDOCAINE 2% INJ 20 MG/ML (2 ML VIAL) ONE (10:45)
[2023-04-15] MEDS ORDERED: KETOROLAC 15 MG/ML 1 ML VIAL ONE (10:45)
[2023-04-15] MEDS ORDERED: PROPOFOL 10 MG/ML 20 ML VIAL IV ONE (10:45)
[2023-04-15] MEDS ORDERED: BUPIVACAINE (PF) 0.5% 30 ML VIAL SQ ONE ×2 (11:07→11:33)
--- NOTE | 2023-04-15 11:39 | P.OP ---
Date of Procedure: 04/15/23 Preoperative Diagnosis: Left cubital tunnel syndrome Postoperative Diagnosis: Left cubital tunnel syndrome Procedure(s) Performed: Left open cubital tunnel release, in situ. Anesthesia: GETA Surgeon: Charlie Kapoor Brim Flexer #1: Hammad Seals Estimated Blood Loss (ml): 0 Pathology: none sent Condition: stable Disposition: PACU Description of Procedure: This is a 63 year old female who presented today for a left open cubital tunnel release after having failed conservative treatment. Risks and benefits of surgery were discussed with the patient including bleeding, damage to surrounding tissue, infection, need for further surgery as well as risks of anesthesia including pulmonary embolism and even and the patient wished to proceed with surgical intervention. The patient was seen in the pre-operative area by myself. Consent and H&P were completed and updated. The correct extremity was marked in the pre-operative area by myself and all other questions were answered. Operative Narrative: The patient was brought to the operating room by the department of anesthesia. They remained on the portable stretcher and a rolling hand table was brought to the side of the operative extremity. Pre-operative time out was perfo rmed indicating the correct patient, procedure and laterality. All in the room agreed. Pre-operative antibiotics were given prior to skin incision. The patient was then drifted off to sleep by the department of anesthesia. A nonsterile tourniquet was then applied to the operative extremity and the left upper extremity was then prepped and draped in normal sterile fashion. The operative extremity was the exsanguinated with an esmarch bandage and the tourniquet was inflated to 250mmHg. Attention was brought to the medial elbow. 15 blade scalpel was used to incise skin in between the medial epicondyle and olecranon in a curvlinear and longitudinal fashion. Blunt dissection was taken down through subcutaneous tissue with tenotomy scissors and branches of the MABCN were identified and prot ected. Dissection was carried proximally and the ulnar nerve was identified and released in it's entirety to the arcade of [place]. Dissection was then carried distally and munoz's ligament was released at the medial epicondyle, the nerve appeared compressed at this location. Dissection was then carried out further distal and the superficial and deep fascia overlying the two heads of the FCU were incised and the ulnar nerve was maximally compressed at this location with erythema and flattening of the nerve at this location. Both layers of the fascia were decompressed with [place] and tenotomy scissors and the nerve appeared to be tension free. The elbow was the flexed and extended and the ulnar nerve appeared to be stable in a tension free manner. 20cc's of 0.5% bupivacaine was injected into the subcutaneous tissues. Skin closure was performed with interrupted 3-0 Monocryl sutures followed by running 4-0 monocryl sutures and a soft dressing with steri strips, fluffs, cast padding and tacos wrap. Tourniquet was then let down and the hand had immediate perfusion. The patient was then woken by the department of anesthesia and transferred to PACU in stable condition. Hammad RICH was present to assist in major portions of the case including protection of vital neurovascular structures and retraction. Charlie Kapoor D.O. Orthopedic Hand/Upper Extremity Surgeon
[2023-04-15] MEDS ORDERED: HYDROcodone/APAP 5-325MG 1 EACH TAB PO ONE (12:55)
[2023-04-15] MEDS ORDERED: HYDROcodone/APAP 5-325MG 1 EACH TAB ONE (12:58)
[2023-04-15 13:14] VITALS: BP 126/82; PULSE 69; RESP 18; TEMP 97
== END 2023-04-15 13:28 | disposition home or self-care (01) ==
LOC: OR 10:03
PROVIDERS: ATTEND Orthopaedic Surgery Hand Surgery
DX: G56.22 Lesion of ulnar nerve, left upper limb (principal); I10 Essential (primary) hypertension; E78.5 Hyperlipidemia, unspecified; E07.9 Disorder of thyroid, unspecified; M85.80 Other specified disorders of bone density and structure, unspecified site; Z98.890 Other specified postprocedural states; Z83.3 Family history of diabetes mellitus; Z79.890 Hormone replacement therapy; Z79.899 Other long term (current) drug therapy
CPT/HCPCS: 84132; 64718; J2250; J1100; J2405; J3010; J1885; J2704; J2001; J0665

== ENCOUNTER → 2023-05-19 | Outpatient (CLI) | payer MEDICARE, OTHER ==
[2023-05-19 10:16] VITALS: BP 117/83; PULSE 88; RESP 17; TEMP 98.7
--- NOTE | 2023-05-19 10:58 | P.HPOB ---
History of Present Illness H&P Date: 05/19/23 Chief Complaint: The patient is here for her routine gynecologic exam. This is a 63-year-old G0 with an LMP of 2009. The patient is without gynecologic complaints and denies any postmenopausal bleeding. Review of Systems The patient has gained 15 pounds over the last year. She denies respiratory, cardiac, or G.I. problems. Past Medical History Past Medical History: Hyperlipidemia, Hypertension, Thyroid Disorder Additional Past Medical History / Comment(s): Chronic back pain, Osteopenia. 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 History of Any Multi-Drug Resistant Organisms: None Reported Past Surgical History: No Surgical Hx Reported, Breast Surgery Additional Past Surgical History / Comment(s): cryotherapy of the cervix 2003, rt breast cyst removed, bilateral elbow surgery Past Anesthesia/Blood Transfusion Reactions: No Reported Reaction Past Psychological History: Depression (PHQ-2 questionaire was given and she scores 0. This is a negative screen for current depression.), Panic Disorder Smoking Status: Never smoker Past Alcohol Use History: None Reported Past Drug Use History: None Reported Additional History: She is single and is not sexually active. She is the primary caregiver for her mother. She no longer works outside of the home at this time. - Past Family History Mother Family Medical History: Diabetes Mellitus Medications and Allergies Home Medications Medication Instructions Recorded Confirmed Type Levothyroxine Sodium [Synthroid] 88 mcg PO QAM 05/18/15 05/19/23 History Cholecalciferol [Vitamin D3 (25 1,000 unit PO DAILY 04/25/20 05/19/23 History Mcg = 1000 Iu)] Atorvastatin [Lipitor] 10 mg PO DAILY 02/10/23 05/19/23 History DULoxetine HCL [Cymbalta] 60 mg PO DAILY 02/10/23 05/19/23 History Losartan/Hydrochlorothiazide 1 tab PO DAILY 02/10/23 05/19/23 History [Losartan-Hctz 50-12.5 mg Tab] Acetaminophen-Codeine 300-30mg 1 - 2 tab PO TID PRN 04/10/23 05/19/23 History [Tylenol w/codeine #3] Allergies Allergy/AdvReac Type Severity Reaction Status Date / Time No Known Allergies Allergy Verified 05/19/23 10:06 Exam Vital Signs Temp Pulse Resp BP Pulse Ox 05/19/23 10:08 98.7 F 88 17 117/83 96 Intake and Output 05/18/23 05/19/23 05/19/23 22:59 06:59 14:59 Other: Weight 113.852 kg Height 5 feet 3 inches, weight 251 pounds, BMI 44.5. This is a well-developed well-nourished heavyset white female who is alert and oriented times 3 in no acute distress. HEENT: Within normal limits. NECK: Supple without mass or thyromegaly. CHEST AND LUNGS: Clear to auscultation. HEART: Regular rate and rhythm. BREASTS: Are without mass or discharge. AXILLARY EXAM: Negative for adenopathy. BACK: Negative for CVA tenderness. ABDOMEN: Soft, nontender, without palpable masses. PELVIC EXAM: Normal external genitalia with mild atrophy. Cervix and vagina appear normal with mild atrophy. There is no unusual discharge. There is no evidence of prolapse. The uterus is midposition, nongravid size and nontender. There are no palpable adnexal masses or tenderness. Bimanual examination is somewhat limited secondary to her size. RECTAL EXAM: Rectovaginal exam is negative for mass or tenderness and is negative for occult blood. EXTREMITIES: Nontender. IMPRESSION: 1. 63-year-old menopausal female with normal gynecologic exam. 2. History of osteopenia 3. History of cryotherapy of the cervix in 2003. PLAN: 1. Pap smear cotest was performed. If this is negative we will plan on discontinuing Pap smears and this will be about 20 years after her cryotherapy of the cervix. 2. Self breast awareness was discussed with the patient. We have also discussed symptoms associated with inflammatory breast cancer. 3. Screening mammogram will be due next month and the order slip was given to the patient for this. 4. Osteoporosis prevention was discussed. I have stressed the importance of adequate calcium, vitamin D and regular exercise. Recommended amounts of calcium and vitamin D were also discussed. Bone density testing will be repeated today. 5. PHQ-2 questionaire was given and she scores 0. This is a negative screen for current depression. 6. Weight control was discussed with the patient. I stressed the importance of good nutrition, regular meals, adequate fiber, and regular exercise. 7. She was advised to return in one year for her annual well woman exam.
--- NOTE | 2023-05-19 14:30 | BD ---
EXAMINATION TYPE: Axial Bone Density DATE OF EXAM: 05/19/2023 CLINICAL HISTORY: 63 years old Female. ICD-10 CODE: Z78.0 POST MENOPAUSAL WITHOUT HRT Height: 63 Weight: 251 FRAX RISK QUESTIONS: Alcohol (3 or more units per day): no Family History (Parent hip fracture): yes Glucocorticoids (More than 3mos): no (Ex: prednisone, prednisolone, methylprednisolone, dexamethasone, and hydrocortisone). History of Fracture in Adulthood: no Secondary Osteoporosis: 1. Type 1 Diabetes: no 2. Hyperthyroidism: no 3. Menopause before 45: no 4. Malnutrition: no 5. Chronic liver disease: no Rheumatoid Arthritis: no Current Tobacco Use: no RISK FACTORS HISTORY OF: Surgery to Spine/Hip(right/left)/Wrist (right/left): no Family History of Osteoporosis: no Active: yes Diet low in dairy products/other sources of calcium: no Postmenopausal woman: yes MEDICATIONS: Thyroid Medications: synthroid How Lon years Additional History: EXAM MEASUREMENTS: Bone mineral densitometry was performed using the [employer] System. Bone mineral density as measured about the Lumbar spine is: ----- L1-L4(G/cm2): 1.141 T Score Values are as follows: ----- L1: -0.4 ----- L2: -1.1 ----- L3: -0.2 ----- L4: 0.1 ----- L1-L4: -0.3 Z Score Values are as follows: ----- L1: 0.1 ----- L2: -0.7 ----- L3: 0.2 ----- L4: 0.5 ----- L1-L4: 0.1 Bone mineral density has: increased 6.0 % since study of: 05.23.2020 Bone mineral density about the R hip (g/cm2): 0.871 Bone mineral density about the L hip (g/cm2): 0.918 T Score values are as follows: -----R Neck: -2.0 -----L Neck: -1.7 -----R Total: -1.1 -----L Total: -0.7 Z Score values are as follows: -----R Neck: -1.3 -----L Neck: -1.0 -----R Total: -0.7 -----L Total: -0.3 Bone mineral density has: increased 1.0 % since study of: 05.23.2020 FRAX%s: The graph provided illustrates a 17.4% chance for a major osteoporotic fx and a 1.5% chance f or the hips probability for fx in 10 years time. IMPRESSION: Osteopenia (T Score between -2.5 and -1). There is slightly increased risk of fracture and the patient may be considered for treatment. Re-Screen 2-5 years. NOTE: T-SCORE=SD OF THE YOUNG ADULT MEAN.
== END ==
LOC: WWCWWP 09:57
PROVIDERS: ATTEND Obstetrics & Gynecology
DX: Z12.31 Encounter for screening mammogram for malignant neoplasm of breast (principal); E78.5 Hyperlipidemia, unspecified; G89.29 Other chronic pain; I10 Essential (primary) hypertension; E07.9 Disorder of thyroid, unspecified; M81.8 Other osteoporosis without current pathological fracture; Z78.0 Asymptomatic menopausal state; Z92.3 Personal history of irradiation; Z79.899 Other long term (current) drug therapy; Z79.890 Hormone replacement therapy
CPT/HCPCS: 77080

== ENCOUNTER → 2023-06-01 | Outpatient (CLI) | payer MEDICARE, OTHER ==
--- NOTE | 2023-06-01 09:49 | MM ---
Reason for Exam: Screening (asymptomatic). Last screening mammogram was performed 12 month(s) ago. Patient History: Menarche at age 13. Patient has no children. Postmenopausal. 06/17/2019, Benign Cyst Aspiration on the right side. Risk Values: Sophy 5 year model risk: 1.7%. NCI Lifetime model risk: 6.3%. Prior Study Comparison: 05/25/2020 Bilateral Screening Mammogram, [facility]. 05/27/2021 Bilateral Screening Mammogram, [facility]. 05/29/2022 Bilateral MG 3D screening mammo w/cad, [facility]. Tissue Density: The breast tissue is heterogeneously dense. This may lower the sensitivity of mammography. Findings: Analyzed By CAD. Right breast biopsy clip. There is no suspicious group of microcalcifications or new suspicious mass. Benign-appearing calcifications bilaterally. Overall Assessment: Benign, BI-RAD 2 Management: Screening Mammogram of both breasts in [address] [facility] will attempt to contact patient to return for supplemental views and ultrasound if indicated. Patient should continue monthly self-breast exams. A clinical breast exam by your physician is recommended on an annual basis. This exam should not preclude additional follow-up of suspicious palpable abnormalities. Note on Sophy scores and lifetime risk: 1. A Sophy score greater than 3% is considered moderate risk. If this is the case, consider specialist referral to assess eligibility for a risk reducing agent. 2. If overall lifetime risk for the development of breast cancer is 20% or higher, the patient may qualify for future screening with alternating mammogram and breast MRI. Electronically signed and approved by: Kenton Max DO
== END | disposition home or self-care (01) ==
LOC: RADMAMWWP 08:24
PROVIDERS: ATTEND Surgery
DX: Z12.31 Encounter for screening mammogram for malignant neoplasm of breast (principal); Z78.0 Asymptomatic menopausal state
CPT/HCPCS: 77063; 77067

== ENCOUNTER → 2023-06-05 | Outpatient (CLI) | payer OTHER ==
--- NOTE | 2023-06-05 10:30 | P.PN ---
Subjective Progress Note Date: 06/05/23 Principal diagnosis: fibrocystic breast changes fibrocystic breast changes Esme is a 63-year-old white female seen regarding fibrocystic breast disease. [place] [id number] which was benign BIRADS 2. She is not complaining of any new lumps masses or nodules of concern in either breast. Importance is the fact that she underwent an ultrasound- guided biopsy of the right breast on [id number] this was benign. Underwent a bilateral mammogram on . It was benign BIRADS 2. The patient is not complaining of any lumps masses or nodules of concern in her breast. She is not complaining of any nipple discharge or skin changes. She has not had any recent surgery or trauma to her breast. No recent breast infections. She drinks tea daily. She does not smoke and is not exposed to second hand smoke. She eats dark chocolate about twice a week. Family History: no cancer Hormonal History; menarche: 13 Go menopause: 49 BCP: 30 years hormones: none Surgical history: Negative Medical history: Negative Social history: Smoke: Negative Alcohol: Negative Drugs: Negative - Constitutional Constitutional: Denies chills, Denies fever - EENT Eyes: denies blurred vision, denies pain Ears: deny: decreased hearing, tinnitus Ears, nose, mouth and throat: Denies headache, Denies sore throat - Breasts Breasts: bilateral: as per HPI - Cardiovascular Cardiovascular: Denies chest pain, Denies shortness of breath - Respiratory Respiratory: Denies cough - Gastrointestinal Gastrointestinal: Denies abdominal pain, Denies diarrhea, Denies nausea, Denies vomiting - Genitourinary (Female) Genitourinary: Denies dysuria, Denies hematuria - Menstruation Menstruation: Reports postmenopausal - Musculoskeletal Comment: swelling in hands from typing, gets steroid shots on occasion - Integumentary Integumentary: Denies pruritus, Denies rash - Neurological Neurological: Denies numbness, Denies weakness - Psychiatric Psychiatric: Denies anxiety, Denies depression - Endocrine Endocrine: Denies fatigue, Denies weight change - Hematologic/Lymphatic Comment: none - Allergic/Immunologic Allergic/Immunologic: Reports as per HPI Objective - Constitutional General appearance: Present: cooperative - EENT Eyes: Present: EOMI ENT: Present: hearing grossly normal - Neck Neck: Present: normal ROM - Respiratory Respiratory: bilateral: CTA - Cardiovascular Rhythm: regular Heart sounds: normal: S1, S2 - Integumentary Integumentary: Present: normal turgor - Psychiatric Psychiatric: Present: A&O x's 3, appropriate affect, intact judgment & insight - Additional findings Additional findings: Breast Exam: BRA: 42D Inspection: Right breast larger than left breast, bilateral grade 2/3 ptosis Palpation: Right breast: Multi-positional exam fibrocystic changes no dominant masses or nodules of concern Right axilla: No adenopathy of concern Left breast: Multi-positional exam fibrocystic changes no dominant masses or nodules of concern Left axilla: No adenopathy of concern Assessment and Plan Assessment: Impression: Fibrocystic breast changes Plan: Bilateral mammogram 1 year with physician exam at that time; patient is going to follow with her primary care doctor and will have her primary care doctor ordered a mammogram Cc: Dr. Morejon
== END ==
LOC: WWCWWP 09:39
PROVIDERS: ATTEND Surgery
DX: Z12.31 Encounter for screening mammogram for malignant neoplasm of breast (principal); N60.11 Diffuse cystic mastopathy of right breast; N60.12 Diffuse cystic mastopathy of left breast

== ENCOUNTER → 2024-06-07 | Outpatient (CLI) | payer MEDICARE ==
[2024-06-07 08:19] VITALS: BP 145/82; PULSE 78; RESP 17; TEMP 97.8
--- NOTE | 2024-06-07 08:48 | P.HPOB ---
History of Present Illness H&P Date: 06/07/24 Chief Complaint: The patient is here for her routine gynecologic exam and ma mmogram. This is a 64-year-old G0 with an LMP of 2009. The patient is without gynecologic complaints and denies any postmenopausal bleeding. Review of Systems The patient has gained 8 pounds over the last year. She states she has been under a fair amount of stress caring for her mother as well as other concerns. She denies respiratory, cardiac, or G.I. problems. Past Medical History Past Medical History: Hyperlipidemia, Hypertension, Osteoarthritis (OA), Thyroid Disorder Additional Past Medical History / Comment(s): Chronic back pain, Osteopenia. 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 History of Any Multi-Drug Resistant Organisms: None Reported Past Surgical History: Breast Surgery Additional Past Surgical History / Comment(s): cryotherapy of the cervix 2003, rt breast cyst removed, bilateral elbow surgery Past Anesthesia/Blood Transfusion Reactions: No Reported Reaction Past Psychological History: Depression, Panic Disorder Smoking Status: Never smoker Past Alcohol Use History: None Reported Past Drug Use History: None Reported Additional History: She is single and is not sexually active. She is the primary caregiver for her mother and now lives with her. - Past Family History Mother Family Medical History: Diabetes Mellitus Medications and Allergies Home Medications Medication Instructions Recorded Confirmed Type Levothyroxine Sodium [Synthroid] 88 mcg PO QAM 05/18/15 05/19/23 History Cholecalciferol [Vitamin D3 (25 1,000 unit PO DAILY 04/25/20 05/19/23 History Mcg = 1000 Iu)] Atorvastatin [Lipitor] 10 mg PO DAILY 02/10/23 05/19/23 History DULoxetine HCL [Cymbalta] 60 mg PO DAILY 02/10/23 05/19/23 History Losartan/Hydrochlorothiazide 1 tab PO DAILY 02/10/23 05/19/23 History [Losartan-Hctz 50-12.5 mg Tab] Allergies Allergy/AdvReac Type Severity Reaction Status Date / Time No Known Allergies Allergy Verified 06/07/24 08:16 Exam Vital Signs Temp Pulse Resp BP Pulse Ox 06/07/24 08:17 97.8 F 78 17 145/82 97 Intake and Output 06/06/24 06/07/24 06/07/24 22:59 06:59 14:59 Other: Weight 117.48 kg Height 5 feet 3 inches, weight 259 pounds, BMI 45.9. This is a well-developed well-nourished heavyset white female who is alert and oriented times 3 in no acute distress. HEENT: Within normal limits. NECK: Supple without mass or thyromegaly. CHEST AND LUNGS: Clear to auscultation. HEART: Regular rate and rhythm. BREASTS: Are without mass or discharge. AXILLARY EXAM: Negative for adenopathy. BACK: Negative for CVA tenderness. ABDOMEN: Soft, nontender, without palpable masses. PELVIC EXAM: Normal external genitalia mild atrophy. Cervix and vagina appear normal with mild atrophy. There is no unusual discharge. There is no evidence of prolapse. The uterus is midposition, nongravid size and nontender. There are no palpable adnexal masses or tenderness. Bimanual examination is somewhat limited secondary to her size. RECTAL EXAM: Rectovaginal exam is negative for mass or tenderness and is negative for occult blood. EXTREMITIES: Nontender. IMPRESSION: 1. 64-year-old menopausal female with normal gynecologic exam. 2. History of osteopenia. 3. History of cryotherapy of the cervix in 2003 for uncertain indication. PLAN: 1. Pap smear was deferred since she had a negative Pap smear cotest on 05/19/2023. We will continue cervical screening until at least 2028. 2. Self breast awareness was discussed with the patient. We have also discussed symptoms associated with inflammatory breast cancer. 3. Screening mammogram will be done today. 4. Osteoporosis prevention was discussed. We will plan on repeating the bone density test next year since we last did it in 2022. 5. Weight control was discussed with the patient. I have discussed the importance of good nutrition and regular exercise. 6. She was advised to return in one year for her annual well woman exam.
== END ==
LOC: WWCWWP 08:05
PROVIDERS: ATTEND Obstetrics & Gynecology
DX: Z12.31 Encounter for screening mammogram for malignant neoplasm of breast (principal); M85.80 Other specified disorders of bone density and structure, unspecified site; Z92.89 Personal history of other medical treatment; Z78.0 Asymptomatic menopausal state
CPT/HCPCS: 77063; 77067

== ENCOUNTER → 2024-10-27 | Outpatient (CLI) | payer MEDICARE | END | disposition home or self-care (01) | LOC: LABWHC1 09:51 | PROVIDERS: ATTEND Family Medicine | DX: Z01.818 Encounter for other preprocedural examination (principal) | CPT/HCPCS: 36415; 93005 ==